=== PATIENT | male | born 1955 | race Caucasian/White ===

== ENCOUNTER → 2020-06-05 | Outpatient (CLI) | payer MEDICARE ==
[~2020-06-05] MED LIST: RT-ALBUTEROL SULF 2.5 MG/3 ML PRE-MIX VIAL INH ONE
== END ==
LOC: RT 10:14
PROVIDERS: ATTEND Family Medicine
DX: J43.1 Panlobular emphysema (principal)
CPT/HCPCS: 94060; 94726; 94729

== ENCOUNTER → 2022-03-11 | Outpatient (CLI) | payer MEDICARE | LOC: WOUNDCARE 09:48 | PROVIDERS: ATTEND Family Medicine | DX: T63.331A Toxic effect of venom of brown recluse spider, accidental (unintentional), initial encounter (principal); E11.622 Type 2 diabetes mellitus with other skin ulcer; E66.01 Morbid (severe) obesity due to excess calories; F17.210 Nicotine dependence, cigarettes, uncomplicated | CPT/HCPCS: 99213 ==

== ENCOUNTER → 2022-03-18 | Outpatient (CLI) | payer MEDICARE | LOC: WOUNDCARE 12:43 | PROVIDERS: ATTEND Family Medicine | DX: T63.331A Toxic effect of venom of brown recluse spider, accidental (unintentional), initial encounter (principal); E11.622 Type 2 diabetes mellitus with other skin ulcer; E11.52 Type 2 diabetes mellitus with diabetic peripheral angiopathy with gangrene; I96 Gangrene, not elsewhere classified; E66.01 Morbid (severe) obesity due to excess calories; F17.210 Nicotine dependence, cigarettes, uncomplicated; Z68.29 Body mass index [BMI] 29.0-29.9, adult | CPT/HCPCS: 99212 ==

== ENCOUNTER → 2023-01-15 | Outpatient (CLI) | payer MEDICARE ==
--- NOTE | 2023-01-15 16:40 | Diagnostic Imaging Report ---
INDICATION: Renal calculus. FINDINGS: A left-sided double-J stent is present with proximal coil in the lower renal pelvis or proximal ureter. A large calculus in the lower pole of the left kidney measured 13 mm in long axis. No radiodense stone along the course of the left ureteral stent. IMPRESSION: Left lower pole renal calculus. Dictated by: Dictated on workstation # [id number]
== END ==
LOC: RAD FS 15:22
PROVIDERS: ATTEND Urology
DX: N20.0 Calculus of kidney (principal)
CPT/HCPCS: 74018

== ENCOUNTER → 2023-01-16 | Outpatient (CLI) | payer MEDICARE ==
--- NOTE | 2023-01-16 11:36 | Diagnostic Imaging Report ---
INDICATION: History of ureteral tumor. EXAMINATION: PA and lateral chest obtained at 10:45 AM. FINDINGS: The heart and mediastinal silhouette are normal in appearance. The lungs are clear. There is no pneumothorax or pleural fluid. IMPRESSION: Negative chest. Dictated by: Dictated on workstation # [id number]
== END ==
LOC: RAD FS 10:34
PROVIDERS: ATTEND Urology
DX: C66.9 Malignant neoplasm of unspecified ureter (principal)
CPT/HCPCS: 71046

== ENCOUNTER → 2023-01-29 | Outpatient (CLI) | payer MEDICARE ==
[~2023-01-29] MED LIST changes: +REGADENOSON 0.4 MG/5 ML SYR (LEXISCAN) IV ONE; -RT-ALBUTEROL SULF 2.5 MG/3 ML PRE-MIX VIAL INH ONE
== END ==
LOC: CARD 09:53
PROVIDERS: ATTEND Internal Medicine Cardiovascular Disease
DX: I08.2 Rheumatic disorders of both aortic and tricuspid valves (principal)
CPT/HCPCS: 93306

== ENCOUNTER → 2023-01-31 | Outpatient (CLI) | payer MEDICARE ==
[~2023-01-31] VITALS: Ht 177 cm; Wt 88.0 kg
[~2023-01-31] MED LIST changes: +CATHETER FLUSH 10 ML SYR IVP PRN
[2023-01-31 08:28] VITALS: BP 146/90
--- NOTE | 2023-01-31 14:12 | STRESS TEST ---
DATE OF SERVICE: 01/31/2023 RESTING AND POST EXERCISE TECHNETIUM-99M TETROFOSMIN SPECT CT IMAGING ORDERING PHYSICIAN: Sheila Villegas MD; KRYSTAL; MARK; SHAUN PRIMARY PHYSICIAN: [ ] CLINICAL DIAGNOSIS: Shortness of breath. Baseline images were carried out after injection of 10.96 mCi of technetium-99m tetrofosmin. This was followed by 0.4 mg regadenoson and 30 mCi of technetium-99m tetrofosmin for stress imaging. The electrocardiogram showed sinus rhythm. 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 The electrocardiogram did not change significantly. The patient noted shortness of breath following regadenoson infusion, which resolved in a few minutes. Review of images at rest and following stress indicates a small predominantly fixed basal inferior perfusion defect. Gated images showed localized basal inferior hypokinesis. Left ventricular ejection fraction is calculated to be 65%. CONCLUSIONS: 1. Small basal inferior infarction without significant ischemia. 2. Localized basal inferior hypokinesis. 3. Well preserved global left ventricular systolic function with a calculated ejection fraction of 65%. Job ID: [id number] DocumentID: [id number] Dictated Date: 01/31/2023 10:27:03 Principal Technical Writer Date: 01/31/2023 13:37:00 Dictated By: SHEILA VILLEGAS MD; KRYSTAL; MARK; SHAUN;
== END ==
LOC: CARD 07:00
PROVIDERS: ATTEND Internal Medicine Cardiovascular Disease
DX: I25.10 Atherosclerotic heart disease of native coronary artery without angina pectoris (principal)
CPT/HCPCS: 78452; 93017; A9502

== ENCOUNTER → 2023-03-20 | Outpatient (CLI) | payer MEDICARE ==
[~2023-03-20] MED LIST changes: -REGADENOSON 0.4 MG/5 ML SYR (LEXISCAN) IV ONE
--- NOTE | 2023-03-20 14:15 | Diagnostic Imaging Report ---
Indication: Initial staging ureteral carcinoma. Serum blood glucose level at the time of injection is 120 mg/dL. Patient was administered 10.7 mCi F-18 FDG intravenously in the right antecubital location and PET imaging was performed from the top of skull to mid thighs. Noncontrast CT was also performed for attenuation correction and anatomic correlation. No prior PET/CT studies are available for comparison. Comparison is made with prior CT study of the abdomen and pelvis performed on 01/09/2023. There is symmetric activity throughout the brain. Soft tissues of the neck are unremarkable. No definite mediastinal or hilar hypermetabolism is identified. No pulmonary parenchymal hypermetabolism is detected. There is physiologic activity throughout the gastrointestinal and genitourinary tract of the abdomen and pelvis. No suspicious areas of hypermetabolism are identified. Patient has undergone a left nephrectomy. No hypermetabolic lymphadenopathy is identified. IMPRESSION: Unremarkable PET/CT study. No suspicious areas of hypermetabolism are identified. Dictated by: Dictated on workstation # [id number]
== END ==
LOC: RAD 09:12
PROVIDERS: ATTEND Internal Medicine Hematology & Oncology
DX: C66.2 Malignant neoplasm of left ureter (principal)
CPT/HCPCS: 78815; 82947; A9552

== ENCOUNTER → 2023-06-20 | Outpatient (CLI) | payer MEDICARE ==
--- NOTE | 2023-06-20 13:14 | Diagnostic Imaging Report ---
PROCEDURE: CT chest without contrast. TECHNIQUE: Multiple contiguous axial images were obtained through the chest without the use of intravenous contrast. Auto Exposure Controls were utilized during the CT exam to meet ALARA standards for radiation dose reduction. INDICATION: 67-year-old male, history of ureteral cancer. Shortness of breath. CORRELATION: None FINDINGS: Heart size normal. Rather prominent coronary artery calcification. There is mild calcification of the thoracic aorta, otherwise normal in contour. There is no significant mediastinal, axillary and/or hilar lymphadenopathy suggested at noncontrast imaging. GE junction unremarkable. There is mild centrilobular emphysematous change present. Slight areas of bronchial wall thickening are noted. There is more focal mucosal wall thickening and likely secretions involving the bilateral lower lobe bronchi right greater than left. Some areas of near endobronchial occlusion. There is no lorena lobar consolidation. No significant bronchiectasis. No significant pleural effusion. Apparent left nephrectomy. Stomach distended with fluid and retained gastric contents. Mildly advanced degenerative changes of the thoracic spine with slight accentuated thoracic kyphosis. Mild multilevel Schmorl's node deformity. IMPRESSION: 1. Prominent bronchial wall thickening and mucous secretions bilateral lower lobes right greater than left suggesting bronchiolitis. No lorena lobar consolidating infiltrate. Dictated by: Dictated on workstation # [id number]
== END ==
LOC: RAD FS 11:27
PROVIDERS: ATTEND Internal Medicine Hematology & Oncology
DX: J98.09 Other diseases of bronchus, not elsewhere classified (principal); C66.2 Malignant neoplasm of left ureter
CPT/HCPCS: 71250